=== PATIENT | male | born 1970 | race Native Hawaiian/Other Pacific Islander ===

== ENCOUNTER 2017-06-21 21:01 | Inpatient (IN) | payer BC, OTHER ==
[2017-06-21 22:01] VITALS: BMI 23.6
[2017-06-21] MEDS ORDERED: TDAP Vaccine 0.5 mL Syr IM ONE (22:48)
--- NOTE | 2017-06-21 22:48 | ED PDOC ---
Arrival/HPI <Michael Chisholm - Last Filed: 06/21/17 23:30> - General Historian: Patient, Family <Odalis Ramsey - Last Filed: 06/22/17 02:58> - General Chief Complaint: Syncope Time Seen by Provider: 06/21/17 22:12 - History of Present Illness Narrative History of Present Illness (Text): 06/21/17 22:42 47yr old male presents today s/p syncopal episode. pt states that he was feeling dizzy today and was sent home from work. pt states he took a nap and when he woke up he stood up started walking and passed out. pt states he didnt trip and fall. pt c/o pain to left side of lower lip and face with swelling. pt with hx of anemia but states he never followed up with a doctor. pt denies any complaints at present time. no chest pain or sob. no vomiting/diarrhea. no abdominal pain. pt denies neck or back pain. patients family states this is not the first time he has passed out. They states he has been passing out a lot lately. (Odalis Ramsey) Past Medical History - Provider Review Nursing Documentation Reviewed: Yes - Travel History Have you recently traveled outside [place] w/in the past 3 mons?: No - Tetanus Immunization Tetanus Immunization: Unknown - Cardiac Hx Cardiac Disorders: No - Pulmonary Hx Asthma: Yes - Neurological Hx Neurological Disorder: No - HEENT Hx HEENT Disorder: No - Renal Hx Renal Disorder: No - Endocrine/Metabolic Hx Endocrine Disorders: No - Hematological/Oncological Hx Blood Disorders: No - Integumentary Hx Dermatological Disorder: Yes Hx Eczema: Yes - Musculoskeletal/Rheumatological Hx Falls: No - Gastrointestinal Hx Gastrointestinal Disorders: No - Genitourinary/Gynecological Hx Genitourinary Disorders: No - Psychiatric Hx Psychophysiologic Disorder: No Hx Substance Use: No - Anesthesia Hx Anesthesia: No <Odalis Ramsey - Last Filed: 06/22/17 02:58> Family/Social History - Physician Review Nursing Documentation Reviewed: Yes Family/Social History: Unknown Family HX Smoking Status: Light Smoker < 10 Cigarettes Daily Hx Alcohol Use: Yes (pt admits to drinking 3-4 beers/day) Hx Substance Use: No <Odalis Ramsey - Last Filed: 06/22/17 02:58> Allergies/Home Meds <PhanMichael - Last Filed: 06/21/17 23:30> <Odalis Ramsey - Last Filed: 06/22/17 02:58> Allergies/Adverse Reactions: Allergies No Known Allergies Allergy (Verified 06/21/17 22:00) Home Medications: Home Meds Medication Instructions Recorded Confirmed No Known Home Med 06/21/17 06/21/17 Review of Systems - Review of Systems Constitutional: Fatigue. absent: Fevers ENT: Other (lip swelling/ abrasion lip). absent: Sore Throat, Sinus Congestion Respiratory: absent: SOB, Cough Cardiovascular: Syncope. absent: Chest Pain, Palpitations Gastrointestinal: absent: Abdominal Pain, Nausea, Vomiting Genitourinary Male: absent: Dysuria, Frequency, Hematuria Musculoskeletal: absent: Arthralgias, Back Pain, Neck Pain Skin: Laceration. absent: Rash, Pruritis Neurological: Dizziness. absent: Headache Psychiatric: absent: Anxiety, Depression <Odalis Ramsey - Last Filed: 06/22/17 02:58> Physical Exam Vital Signs Reviewed: Yes Temperature: Afebrile Blood Pressure: Normal Pulse: Regular Respiratory Rate: Normal Appearance: Positive for: Well-Appearing, Non-Toxic, Comfortable Pain Distress: None Mental Status: Positive for: Alert and Oriented X 3 Finger Stick Blood Glucose: 97 - Systems Exam Head: Present: Swelling, Ecchymosis, Other (there are multiple superficial abrasions noted to the left side of the lower lip; + swelling and ecchymosis noted to lip and chin). No: Atraumatic Pupils: Present: PERRL Extroacular Muscles: Present: EOMI Conjunctiva: Present: Normal Ears: Present: Normal, NORMAL TM Mouth: Present: Moist Mucous Membranes, Normal Tounge, Normal Teeth (no dental fracture. no loose dentition). No: Drooling, Trismus, Normal Lips (there is a 1cm jagged superficial laceration noted to the mucosa of left lower lip; does not cross the sintia border. ) Pharnyx: Present: Normal Nose (External): Present: Atraumatic Nose (Internal): Present: Normal Inspection. No: Septal Hematoma Neck: Present: Normal Range of Motion. No: MIDLINE TENDERNESS, Paraspinal Tenderness Respiratory/Chest: Present: Good Air Exchange, Wheezes (slight expiratory wheezing noted bilaterally. ). No: Clear to Auscultation, Respiratory Distress , Accessory Muscle Use Cardiovascular: Present: Regular Rate and Rhythm Abdomen: No: Tenderness, Distention, Rebound, Guarding Back: Present: Normal Inspection. No: Midline Tenderness, Paraspinal Tenderness Upper Extremity: Present: Normal ROM Lower Extremity: Present: Normal ROM Neurological: Present: GCS=15, Speech Normal Skin: Present: Warm, Dry, Normal Color Psychiatric: Present: Alert, Oriented x 3 <Odalis Ramsey - Last Filed: 06/22/17 02:58> Vital Signs Temp Pulse Resp BP Pulse Ox 06/21/17 22:55 98.9 F 110 H 20 136/97 H 100 Medical Decision Making <Michael Chisholm - Last Filed: 06/21/17 23:30> <Odalis Ramsey - Last Filed: 06/22/17 02:58> ED Course and Treatment: 06/21/17 22:51 47yr old male with syncope today with left sided facial injury and lip laceration ekg sinus tachycardia at 108 bpm normal axis normal intervals no ST elevations head ct: FINDINGS: Brain: There is mild diffuse cerebral atrophy present, consistent with this patient's age. No hemorrhage. No significant white matter disease. Ventricles: Unremarkable. No ventriculomegaly. Bones/joints: Unremarkable. No acute fracture. Soft tissues: Unremarkable. Sinuses: There is mucoperiosteal thickening in the maxillary, ethmoid and sphenoid sinuses, consistent with chronic sinusitis. Mastoid air cells: Unremarkable as visualized. No mastoid effusion. IMPRESSION: No evidence of an acute intracranial abnormality. Chronic sinusitis. maxillofacial ct:FINDINGS: Bones/joints: No acute fracture. Soft tissues: Facial soft tissue swelling. Orbits: Unremarkable. Sinuses: There is diffuse mucoperiosteal thickening in the maxillary, ethmoid and sphenoid sinuses, consistent with chronic sinusitis. There is a benign mucous retention cyst in the left maxillary sinus. Dental: Advanced dental caries. Multiple teeth demonstrate periapical lucencies suggesting periodontal disease. Periapical abscess is not excluded. IMPRESSION: No acute fracture or dislocation. Chronic sinusitis. Advanced dental caries and periodontal disease. cbc: wnl cmp: wnl trop; 0.02 cxr: wnl augmentin given po ASA given po pt given NS iv bolus; pt reassessment; pt still slightly tachycardic; feeling better. laceration irrigated with ns using high pressure irrigation; laceration repaired with 3 6.0 vicryl sutures; all results discussed in depth with patient and family. case discussed in depth with dr. hawkins; accepts observational status admission to [facility] for syncope. all aspects of this case were discussed the attending of record. Impression: Syncope Admit observational status to telemetry (Odalis Ramsey) - Lab Interpretations Lab Results: 06/21/17 22:43 06/21/17 22:43 Lab Results 06/22/17 00:55: Urine Color Yellow, Urine Appearance Sl cloudy, Urine pH 6.5, Ur Specific [place] 1.020, Urine Protein 100 H, Urine Glucose (UA) Negative, Urine Ketones 15 H, Urine Blood Negative, Urine Nitrate Negative, Urine Bilirubin Small H, Urine Urobilinogen 4.0 H, Ur Leukocyte Esterase Negative, Urine RBC 0 - 2, Urine WBC 0 - 2, Ur Epithelial Cells 1 - 3, Urine Bacteria Few 06/21/17 22:43: PT 14.2 H, INR 1.24 H, APTT 37.9 H 06/21/17 22:43: WBC 5.5, RBC 5.53, Hgb 10.1 L, Hct 34.4 L, MCV 62.2 L, MCH 18.3 L, MCHC 29.4 L, RDW 19.7 H, Plt Count 141, Gran % 38.5 L, Lymph % (Auto) 39.4 H , Mason % (Auto) 12.5 H, Eos % (Auto) 6.3 H, Baso % (Auto) 3.3 H, Gran # 2.13, Lymph # (Auto) 2.2, Mason # (Auto) 0.7 H, Eos # (Auto) 0.4, Baso # (Auto) 0.18 06/21/17 22:43: Sodium 147, Potassium 3.2 L, Chloride 105, Carbon Dioxide 25, Anion Gap 21 H, BUN 6 L, Creatinine 0.6 L, Est GFR ( Amer) > 60, Est GFR (Non-Af Amer) > 60, Random Glucose 126 H, Calcium 8.3 L, Total Bilirubin 3.1 H, AST 92 H, ALT 38, Alkaline Phosphatase 95, Lactate Dehydrogenase 737 H, Total Creatine Kinase 85, Troponin I 0.02 D, Total Protein 8.5 H, Albumin 4.4, Globulin 4.2, Albumin/Globulin Ratio 1.0 L - RAD Interpretation Radiology Orders: 06/21/17 22:12 CHEST PORTABLE [RAD] Stat 06/21/17 22:40 HEAD W/O CONTRAST [CT] Stat MAXILLOFACIAL W/O CONTRAST [CT] Stat - Medication Orders Current Medication Orders: Discontinued Medications Amoxicillin/Clavulanate Potassium (Augmentin 875 Mg-125 Mg Tab) 1 tab PO STAT STA PRN Reason: Protocol Stop: 06/22/17 01:14 Last Admin: 06/22/17 01:57 Dose: 1 tab Aspirin (Aspirin) 325 mg PO STAT STA Stop: 06/22/17 01:14 Last Admin: 06/22/17 01:46 Dose: 325 mg Sodium Chloride (Sodium Chloride 0.9%) 1,000 mls @ 999 mls/hr IV .Q1H1M STA Stop: 06/22/17 00:16 Last Admin: 06/22/17 00:02 Dose: 999 mls/hr eMAR Start Stop Document 06/22/17 00:02 (Rec: 06/22/17 00:02 [id number]) Intravenous Solution Start Date 06/22/17 Start Time 00:02 Potassium Chloride (K-Dur 20 Meq Er Tab) 40 meq PO STAT STA Stop: 06/22/17 02:28 Tetanus/Reduced Diphtheria/Acell Pertussis (Boostrix Vaccine Inj) 0.5 ml IM .ONCE ONE Stop: 06/21/17 22:49 Last Admin: 06/22/17 00:00 Dose: 0.5 ml Immunization Registry Document 06/22/17 00:00 (Rec: 06/22/17 00:01 [id number]) Immunization Registry Consent Date 06/21/17 Procedure: Wound Repair - Performed by Performed by: Mid-level Provider - Indications Indication(s):: Laceration - Location Shape:: Other (jagged) Dimensions Length cm: 1cm Depth:: Epidermis - Anesthetic Technique Local/Regional Anesthetic:: Lidocaine 1% - Debris Debris:: None - Irrigated Irrigated with ml of normal saline: copious amounts of NS using high pressure irrigation - Complexity Complexity:: Simple (one layer) - Wound repair method Sutures:: # (3), Size (6.0), Type (vicryl), Technique (interrupted) - Complications Complications: none - Patient tolerated procedure Patient Tolerated Procedure:: Well <Odalis Ramsey - Last Filed: 06/22/17 02:58> - PA / ROAD TEST EXAMINER / Resident Statement / has reviewed & agrees with the documentation as recorded. <Michael Chisholm - Last Filed: 06/21/17 23:30> Disposition/Present on Arrival <Michael Chisholm - Last Filed: 06/21/17 23:30> - Present on Arrival Any Indicators Present on Arrival: No History of DVT/PE: No History of Uncontrolled Diabetes: No Urinary Catheter: No History of Decub. Ulcer: No History Surgical Site Infection Following: None - Disposition Have Diagnosis and Disposition been Completed?: Yes Disposition Time: 02:00 Patient Plan: Observation <Odalis Ramsey - Last Filed: 06/22/17 02:58> - Disposition Diagnosis: Syncope, Lip laceration, Head injury, Facial contusion, Chronic sinusitis Disposition: HOSPITALIZED Patient Problems: Current Active Problems Problem Status Onset Chronic sinusitis Acute Facial contusion Acute Head injury Acute Lip laceration Acute Syncope Acute Condition: FAIR Discharge Instructions (ExitCare): Syncope (ED) Referrals: PCP,NO [Primary Care Provider] - Follow up with primary Forms: Lemko (Ecuadorean)
[2017-06-21 22:51] LABS: BASO # 0.18 K/mm3 (0.0-2.0); BASO % 3.3 % (0.0-3.0); EOS # 0.4 (0.0-0.7); EOS % 6.3 % (1.5-5.0); GRAN # 2.13 (1.4-6.5); GRAN % 38.5 % (50.0-68.0); HEMOGLOBIN 10.1 g/dL (14.0-18.0); LYMPH # 2.2 (1.2-3.4); LYMPH % 39.4 % (22.0-35.0); MEAN CELL VOLUME 62.2 fl (80.0-105.0); MEAN CORPUSCULAR HEMOGLOBIN 18.3 pg (25.0-35.0); MEAN CORPUSCULAR HGB CONC 29.4 g/dl (31.0-37.0); MONO # 0.7 (0.1-0.6); MONO % 12.5 % (1.0-6.0); PLATELET COUNT 141 10^3/uL (120.0-450.0); RBC 5.53 10^6/uL (3.5-6.1); RED CELL DISTRIBUTION WIDTH 19.7 % (11.5-14.5); WHITE BLOOD COUNT 5.5 10^3/ul (4.5-11.0)
[2017-06-21 23:00] LABS: ALBUMIN 4.4 g/dL (3.0-4.8); ALT/SGPT 38 U/L (7-56); AST/SGOT 92 U/L (17-59); BLOOD UREA NITROGEN 6 mg/dL (7-21); CALCIUM 8.3 mg/dL (8.4-10.5); GFR AFRICAN-AMERICAN > 60; GFR NON-AFRICAN AMERICAN > 60
[2017-06-21 23:02] LABS: INR 1.24 (0.93-1.08); PARTIAL THROMBOPLASTIN TIME 37.9 Seconds (25.1-36.5); PROTHROMBIN TIME 14.2 SECONDS (9.4-12.5)
[2017-06-21 23:10] LABS: TROPONIN I 0.02 ng/mL
[2017-06-21] MEDS ORDERED: Sodium Chloride 0.9% 1,000 ML IV STA (23:16)
--- NOTE | 2017-06-22 00:18 | CT ---
EXAM: CT Head Without Intravenous Contrast CLINICAL HISTORY: 47 years old, male; Signs and symptoms; Syncope and collapse TECHNIQUE: Axial computed tomography images of the head/brain without intravenous contrast. All CT scans at this facility use one or more dose reduction techniques, viz.: automated exposure control; ma/kV adjustment per patient size (including targeted exams where dose is matched to indication; i.e. head); or iterative reconstruction technique. Coronal and sagittal reformatted images were created and reviewed. COMPARISON: No relevant prior studies available. FINDINGS: Brain: There is mild diffuse cerebral atrophy present, consistent with this patient's age. No hemorrhage. No significant white matter disease. Ventricles: Unremarkable. No ventriculomegaly. Bones/joints: Unremarkable. No acute fracture. Soft tissues: Unremarkable. Sinuses: There is mucoperiosteal thickening in the maxillary, ethmoid and sphenoid sinuses, consistent with chronic sinusitis. Mastoid air cells: Unremarkable as visualized. No mastoid effusion. IMPRESSION: No evidence of an acute intracranial abnormality. Chronic sinusitis.
--- NOTE | 2017-06-22 00:29 | CT ---
EXAM: CT Maxillofacial Without Intravenous Contrast CLINICAL HISTORY: 47 years old, male; Injury or trauma; Fall; Initial encounter; Concussion /head injury; Loss of consciousness not known; Additional info: Syncope, facial injury TECHNIQUE: Axial computed tomography images of the face without intravenous contrast. All CT scans at this facility use one or more dose reduction techniques, viz.: automated exposure control; ma/kV adjustment per patient size (including targeted exams where dose is matched to indication; i.e. head); or iterative reconstruction technique. Coronal and sagittal reformatted images were created and reviewed. COMPARISON: No relevant prior studies available. FINDINGS: Bones/joints: No acute fracture. Soft tissues: Facial soft tissue swelling. Orbits: Unremarkable. Sinuses: There is diffuse mucoperiosteal thickening in the maxillary, ethmoid and sphenoid sinuses, consistent with chronic sinusitis. There is a benign mucous retention cyst in the left maxillary sinus. Dental: Advanced dental caries. Multiple teeth demonstrate periapical lucencies suggesting periodontal disease. Periapical abscess is not excluded. IMPRESSION: No acute fracture or dislocation. Chronic sinusitis. Advanced dental caries and periodontal disease.
[2017-06-22 01:10] LABS: PH,URINE 6.5 (4.7-8.0); URINE BILIRUBIN SMALL (NEGATIVE); URINE BLOOD NEGATIVE (NEGATIVE); URINE GLUCOSE (UA) NEGATIVE (NEGATIVE); URINE LEUKOCYTE ESTERASE NEGATIVE Leu/uL (NEGATIVE); URINE PROTEIN 100 mg/dL (<30 mg/dL)
[2017-06-22] MEDS ORDERED: Amoxicillin-Clav 875-125 mg Tab PO STA (01:13)
[2017-06-22 01:14] LABS: URINE APPEARANCE SL CLOUDY (CLEAR); URINE COLOR YELLOW (YELLOW)
[2017-06-22 01:33] LABS: URINE BACTERIA FEW (NEG); URINE RBC 0 - 2 /hpf (0-2); URINE WBC 0 - 2 /hpf (0-6)
[2017-06-22] MEDS ORDERED: Lidocaine 1% Inj (20ml) ONE (02:04)
[2017-06-22] MEDS ORDERED: Potassium Chloride 20 mEq ER Tab PO STA ×3 (02:27→15:09)
[2017-06-22] MEDS ORDERED: Albuterol HFA 90 mcg/actuation (8 g) IH PRN (03:09)
[2017-06-22] MEDS ORDERED: Levalbuterol 0.63 MG/3 ML Inhal Soln UD IH PRN (03:09)
[2017-06-22] MEDS ORDERED: Multivitamin (MVI) 10 ML, Thiamine 100 MG, Folic Acid 1 MG in Sodium Chloride 0.9% 1,00... IV ONE (03:12)
[2017-06-22 04:54] LABS: BARBITURATES, UR NEGATIVE (NEGATIVE); BENZODIAZEPINES, UR NEGATIVE (NEGATIVE); OPIATES, UR NEGATIVE (NEGATIVE); PHENCYCLIDINE, UR NEGATIVE (NEGATIVE)
--- NOTE | 2017-06-22 05:25 | CP.PCM.HP ---
<Rhys Goyal - Last Filed: 06/22/17 05:22> History of Present Illness - History of Present Illness History of Present Illness: CC: Syncopal episode HPI: 47 year old male with past medical history of asthma, HTN, gastritis, alcohol abuse who presents to ED by EMS for syncopal episode occurring earlier in the day. Patient indicates that he became dizzy at work due to fasting for blood work he was to have drawn. He then went home and laid down for a nap and as he stood up he became lightheaded and had syncopal episode. Patient is unsure of down time during interview. He reports trauma to his face with abrasion of his lower left lip. Patient denies bowel or urinary incontinence, biting of his tongue, confusion after syncopal episode. He reports that this is the first episode for him in quit some time. Private discussion with family indicates patient has had pre-syncope v. syncope 4 times in the past 7 months. 12 point ros benign other than mentioned in hpi. PMH: asthma, HTN, gastritis, anemia PSH: Colonoscopy, endoscopy SOCHX: Tobacco: 0.5 to 1 PPD for 20 plus years ETOH: 3 beers a day ID: Denies FMH: Asthma, eczema, Mother: [place], cardiac arrest ALL: NKDA MEDS: Alubterol inhaler Present on Admission - Present on Admission Any Indicators Present on Admission: No Review of Systems - Review of Systems All systems: reviewed and no additional remarkable complaints except (as mentioned in hpi) Past Patient History - Tetanus Immunizations Tetanus Immunization: Unknown - Past Social History Smoking Status: Light Smoker < 10 Cigarettes Daily Alcohol: > 2 Drinks/Day Drugs: Denies - CARDIAC Hx Cardiac Disorders: No - PULMONARY Hx Respiratory Disorders: Yes Hx Asthma: Yes - NEUROLOGICAL Hx Neurological Disorder: Yes Hx Dizziness: Yes - HEENT Hx HEENT Problems: No - RENAL Hx Chronic Kidney Disease: No - ENDOCRINE/METABOLIC Hx Endocrine Disorders: No - HEMATOLOGICAL/ONCOLOGICAL Hx Blood Disorders: Yes Hx Anemia: Yes - INTEGUMENTARY Hx Dermatological Problems: Yes Hx Eczema: Yes - MUSCULOSKELETAL/RHEUMATOLOGICAL Hx Musculoskeletal Disorders: Yes Hx Falls: Yes - GASTROINTESTINAL Hx Gastrointestinal Disorders: No - GENITOURINARY/GYNECOLOGICAL Hx Genitourinary Disorders: No - PSYCHIATRIC Hx Psychophysiologic Disorder: No - SURGICAL HISTORY Hx Surgeries: No - ANESTHESIA Hx Anesthesia: No Meds Allergies/Adverse Reactions: Allergies Allergy/AdvReac Type Severity Reaction Status Date / Time No Known Allergies Allergy Verified 06/21/17 22:00 Physical Exam - Constitutional Appears: Non-toxic - Head Exam Head Exam: NORMAL INSPECTION, NORMOCEPHALIC Additional comments: left lower lip with laceration repaired by suture, intact - Eye Exam Eye Exam: EOMI, PERRL - ENT Exam ENT Exam: Mucous Membranes Dry - Respiratory Exam Respiratory Exam: Wheezes (minimal at bases b/l), NORMAL BREATHING PATTERN. absent: Rales, Rhonchi, Stridor - Cardiovascular Exam Cardiovascular Exam: Tachycardia, REGULAR RHYTHM, +S1, +S2 - GI/Abdominal Exam GI & Abdominal Exam: Normal Bowel Sounds, Soft. absent: Firm, Guarding, Tenderness - Extremities Exam Extremities exam: Positive for: normal capillary refill, pedal pulses present. Negative for: calf tenderness, tenderness - Back Exam Back exam: NORMAL INSPECTION. absent: paraspinal tenderness, vertebral tenderness - Neurological Exam Neurological exam: Alert, CN II-XII Intact, Normal Gait, Oriented x3 - Psychiatric Exam Psychiatric exam: Normal Affect, Normal Mood - Skin Skin Exam: Dry, Warm Results - Vital Signs Recent Vital Signs: Last Vital Signs Temp 97.8 F 06/22/17 03:36 Pulse 112 H 06/22/17 02:59 Resp 20 06/22/17 04:47 BP 164/84 H 06/22/17 02:59 Pulse Ox 99 06/22/17 02:59 - Labs Result Diagrams: 06/21/17 22:43 06/21/17 22:43 Labs: Laboratory Results - last 24 hr 06/22/17 04:00 Urine Opiates Screen Negative Urine Methadone Screen Negative Ur Barbiturates Screen Negative Ur Phencyclidine Scrn Negative Ur Amphetamines Screen Negative U Benzodiazepines Scrn Negative U Oth Cocaine Metabols Negative U Cannabinoids Screen Negative Assessment & Plan - Assessment and Plan (Free Text) Assessment: 47 year old male with past medical history of asthma, HTN, gastritis, alcohol abuse who presents to ED by EMS for syncopal episode. Head CT negative for acute intracranial abnormalities Patient to be admitted to observation neurology evaluation for syncopal episode. Plan: Syncopal episode - Etiology: Cardiogenic v. neurogenic - Head CT: negative for acute intracranial abnormality - Neurology consult - EEG - echocardiogram - Carotid US - Electrolytes - orthostatic vital signs - neuro checks Q4H - Fall, seizure precautions Facial trauma - Laceration to lower left lip as a result of syncopal episode - Head CT: no evidence of acute intracranial abn, chronic sinusitus - Maxillofacial CT: Chronic sinusitis, no acute fracture, or dislocation, advaced dental caries and periodontal disease Alcohol abuse - records indicate patient with 6 pack of beer daily, reports 3 beers a day today - CIWA protocol - Librium prn symptoms etoh withdrawal Asthma - Stable - PRN xopenex breathing tx GI/DVT ppx: Heparin Protonix Case and plan discussed with attending - Date & Time Date: 06/22/17 Time: 05:39 <Prudencio Mckoy Q - Last Filed: 06/22/17 06:48> Results - Vital Signs Recent Vital Signs: Last Vital Signs Temp 98.1 F 06/22/17 06:00 Pulse 102 H 06/22/17 06:00 Resp 18 06/22/17 06:00 BP 144/91 H 06/22/17 06:00 Pulse Ox 98 06/22/17 06:00 - Labs Result Diagrams: 06/21/17 22:43 06/21/17 22:43 Labs: Laboratory Results - last 24 hr 06/22/17 04:00 Urine Opiates Screen Negative Urine Methadone Screen Negative Ur Barbiturates Screen Negative Ur Phencyclidine Scrn Negative Ur Amphetamines Screen Negative U Benzodiazepines Scrn Negative U Oth Cocaine Metabols Negative U Cannabinoids Screen Negative Attending/Attestation - Attestation I have personally seen and examined this patient.: Yes I have fully participated in the care of the patient.: Yes I have reviewed all pertinent clinical information: Yes
[2017-06-22 06:53] LABS: ALB/GLOB RATIO 0.9 (1.1-1.8); ALBUMIN 3.4 g/dL (3.0-4.8); ALT/SGPT 32 U/L (7-56); AST/SGOT 64 U/L (17-59); BLOOD UREA NITROGEN 6 mg/dL (7-21); CALCIUM 7.7 mg/dL (8.4-10.5); GFR AFRICAN-AMERICAN > 60; GFR NON-AFRICAN AMERICAN > 60
[2017-06-22 07:00] LABS: BASO # 0.08 K/mm3 (0.0-2.0); BASO % 1.7 % (0.0-3.0); EOS # 0.2 (0.0-0.7); EOS % 4.2 % (1.5-5.0); GRAN # 3.08 (1.4-6.5); GRAN % 65.3 % (50.0-68.0); LYMPH # 0.9 (1.2-3.4); LYMPH % 19.1 % (22.0-35.0); MEAN CELL VOLUME 62.3 fl (80.0-105.0); MEAN CORPUSCULAR HEMOGLOBIN 17.8 pg (25.0-35.0); MEAN CORPUSCULAR HGB CONC 28.5 g/dl (31.0-37.0); MONO # 0.5 (0.1-0.6); MONO % 9.7 % (1.0-6.0); PLATELET COUNT 93 10^3/uL (120.0-450.0); RBC 4.56 10^6/uL (3.5-6.1); RED CELL DISTRIBUTION WIDTH 19.7 % (11.5-14.5); WHITE BLOOD COUNT 4.7 10^3/ul (4.5-11.0)
[2017-06-22 07:29] LABS: HEMOGLOBIN 8.1 g/dL (14.0-18.0)
[2017-06-22] MEDS ORDERED: Albuterol-Ipratrop 3 mg / 0.5 (3 ml) UD IH STA (07:56)
--- NOTE | 2017-06-22 08:10 | CP.PCM.CON ---
History of Present Illness - History of Present Illness History of Present Illness: Neuro Consult note for Dr. Griffith Reason for consult: syncope 47yo male PMHx HTN, asthma, gastritis, alcohol abuse, and anemia BIBA after syncopal episode on 06/21. Patient reports he was dizzy and went from work earlier that day. At home he lay down for a nap and when he stood up he became lightheaded and fell on his face. He reports he had a similar fall 3 years ago when he was sitting down in a chair and had a coughing fit which caused him to syncopize. Patient was uncertain as to how long he was down for but recalls that his face was very painful and that he was bleeding. He denied any bowel/ bladder incontinence, biting of the tongue, frothing at the mouth, confusion after syncopal episode, headache, blurry vision, ringing of the ears, aura like sensations ie smell/feelings of hellen vu. As per family patient has had episodes of pre-syncope vs syncope 4 times in the past 7 months. On complete ROS this AM he admitted to nausea and LLE pain and left jaw pain but denied any fever, chills, chest pain, palpitations, cough, abd pain, bowel/bladder complaints, swelling in his legs b/l. PMHx: asthma, HTN, gastritis, anemia PSurgHx: Colonoscopy, endoscopy SocHx: smokes 1/2 to 1ppd for the past 20 years, Drinks 3 beers/day for years and denies any drug use. 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 as his sister FamHx: Asthma, eczema, Mother: MA, cardiac arrest 70yo; father from gastric ca 46yo ALL: NKDA Meds: pls see chart Review of Systems - Review of Systems All systems: reviewed and no additional remarkable complaints except Review of Systems: as per HPI Past Patient History - Tetanus Immunizations Tetanus Immunization: Unknown - Past Social History Smoking Status: Light Smoker < 10 Cigarettes Daily Alcohol: > 2 Drinks/Day Drugs: Denies - CARDIAC Hx Cardiac Disorders: No - PULMONARY Hx Respiratory Disorders: Yes Hx Asthma: Yes - NEUROLOGICAL Hx Neurological Disorder: Yes Hx Dizziness: Yes - HEENT Hx HEENT Problems: No - RENAL Hx Chronic Kidney Disease: No - ENDOCRINE/METABOLIC Hx Endocrine Disorders: No - HEMATOLOGICAL/ONCOLOGICAL Hx Blood Disorders: Yes Hx Anemia: Yes - INTEGUMENTARY Hx Dermatological Problems: Yes Hx Eczema: Yes - MUSCULOSKELETAL/RHEUMATOLOGICAL Hx Musculoskeletal Disorders: Yes Hx Falls: Yes - GASTROINTESTINAL Hx Gastrointestinal Disorders: No - GENITOURINARY/GYNECOLOGICAL Hx Genitourinary Disorders: No - PSYCHIATRIC Hx Psychophysiologic Disorder: No - SURGICAL HISTORY Hx Surgeries: No - ANESTHESIA Hx Anesthesia: No Meds Allergies/Adverse Reactions: Allergies Allergy/AdvReac Type Severity Reaction Status Date / Time No Known Allergies Allergy Verified 06/21/17 22:00 - Medications Medications: Current Medications Chlordiazepoxide (Librium) 25 mg PO Q8 PRN; Protocol PRN Reason: Symptoms of alcohol withdrawl Famotidine (Pepcid) 20 mg PO BID LETI Multivitamins/Vitamin C 10 ml/Thiamine HCl 100 mg/ Folic Acid 1 mg/ Sodium Chloride 1,011.2 mls @ 150 mls/hr IV .[id number] ONE Stop: 06/22/17 09:56 Last Admin: 06/22/17 03:30 Dose: 150 mls/hr Levalbuterol HCl (Xopenex) 0.63 mg IH [id number] PRN PRN Reason: Shortness of Breath Physical Exam - Head Exam Head Exam: ATRAUMATIC, NORMAL INSPECTION, NORMOCEPHALIC - Eye Exam Eye Exam: EOMI, Normal appearance, PERRL. absent: Conjunctival injection, Scleral icterus Pupil Exam: NORMAL ACCOMODATION - ENT Exam ENT Exam: Mucous Membranes Moist Additional comments: L facial swelling and tenderness to palpation with area of ecchymosis around L jaw left lower lip with laceration repaired by suture, intact - Neck Exam Neck exam: Positive for: Full Rom - Respiratory Exam Respiratory Exam: NORMAL BREATHING PATTERN. absent: Accessory Muscle Use, Respiratory Distress - Cardiovascular Exam Cardiovascular Exam: +S1, +S2 - GI/Abdominal Exam GI & Abdominal Exam: Soft. absent: Tenderness - Rectal Exam Rectal Exam: Deferred - Extremities Exam Extremities exam: Positive for: normal capillary refill, normal inspection, pedal pulses present. Negative for: pedal edema - Neurological Exam Neurological exam: Alert, CN II-XII Intact, Oriented x3 Additional comments: no pronator drift sensation and strength intact in all 4 extremities tremulous - Psychiatric Exam Psychiatric exam: Normal Affect, Normal Mood - Skin Skin Exam: Dry, Intact Additional comments: ecchymosis around left jaw Results - Vital Signs Recent Vital Signs: Last Vital Signs Temp 98.1 F 06/22/17 06:00 Pulse 102 H 06/22/17 06:00 Resp 18 06/22/17 06:00 BP 144/91 H 06/22/17 06:00 Pulse Ox 98 06/22/17 06:00 - Labs Result Diagrams: 06/22/17 05:30 06/22/17 05:30 Labs: Laboratory Results - last 24 hr 06/22/17 06/22/17 06/22/17 04:00 05:30 05:30 WBC 4.7 RBC 4.56 Hgb 8.1 L D Hct 28.4 L MCV 62.3 L MCH 17.8 L MCHC 28.5 L RDW 19.7 H Plt Count 93 L Gran % 65.3 Lymph % (Auto) 19.1 L Emery % (Auto) 9.7 H Eos % (Auto) 4.2 Baso % (Auto) 1.7 Gran # 3.08 Lymph # (Auto) 0.9 L Emery # (Auto) 0.5 Eos # (Auto) 0.2 Baso # (Auto) 0.08 Sodium 145 Potassium 3.1 L Chloride 109 H Carbon Dioxide 23 Anion Gap 17 BUN 6 L Creatinine 0.6 L Est GFR ( Amer) > 60 Est GFR (Non-Af Amer) > 60 Random Glucose 107 Calcium 7.7 L Total Bilirubin 2.4 H AST 64 H D ALT 32 Alkaline Phosphatase 82 Total Protein 7.0 Albumin 3.4 Globulin 3.6 Albumin/Globulin Ratio 0.9 L Urine Opiates Screen Negative Urine Methadone Screen Negative Ur Barbiturates Screen Negative Ur Phencyclidine Scrn Negative Ur Amphetamines Screen Negative U Benzodiazepines Scrn Negative U Oth Cocaine Metabols Negative U Cannabinoids Screen Negative Assessment & Plan - Assessment and Plan (Free Text) Assessment: 47yo male PMHx HTN, asthma, gastritis, alcohol abuse, and anemia BIBA after syncopal episode on 06/21. Neuro consulted for syncope Plan: -CT head: negative -f/u orthostatics -f/u Echo -f/u EEG -f/u carotid and vertebral u/s -f/u CTA head/neck -f/u vitamin b12 and folate -Neuro checks q4 -Fall precautions -Seizure precautions -CIWA protocol Neuro will continue to follow Discussed with Dr. Nacho Jeffery PGY2
--- NOTE | 2017-06-22 09:18 | RAD ---
HISTORY: syncope COMPARISON: 10/22/2015 FINDINGS: LUNGS: No active pulmonary disease. PLEURA: No significant pleural effusion identified, no pneumothorax apparent. CARDIOVASCULAR: Normal. OSSEOUS STRUCTURES: No significant abnormalities. VISUALIZED UPPER ABDOMEN: Normal. OTHER FINDINGS: None. IMPRESSION: No active disease.
[2017-06-22] MEDS: Levalbuterol 0.63 MG/3 ML Inhal Soln UD IH PRN (11:10)
--- NOTE | 2017-06-22 14:19 | CT ---
PROCEDURE: CT Angiography of the neck with contrast HISTORY: syncope COMPARISON: None available. TECHNIQUE: Contiguous axial images of the neck were obtained from the level of the skull-base to the superior mediastinum in the arteriographic phase of enhancement. Coronal and sagittal reformats or also generated. IV contrast dose: 150 cc of Omni 350 Radiation Dose - DLP: 534 mGy-cm This CT exam was performed using one or more of the following dose reduction techniques: Automated exposure control, adjustment of the mA and/or kV according to patient size, and/or use of iterative reconstruction technique. FINDINGS: RIGHT CAROTID ARTERIES: Common Carotid Artery: Normal. Carotid Bifurcation: Normal. Internal Carotid Artery:Normal. External Carotid Artery (proximal branches): Normal. LEFT CAROTID ARTERIES: Common Carotid Artery: Normal. Carotid Bifurcation: Normal. Internal Carotid Artery:Normal. External Carotid Artery (proximal branches): Normal. VERTEBRAL ARTERIES: Right Vertebral Artery: Normal. Left Vertebral Artery: Normal. OTHER FINDINGS: None. IMPRESSION: Normal CT Angiography of the neck. CT Angiography of the Brain. HISTORY: syncope COMPARISON: None available. TECHNIQUE: CT angiography of the intracranial arteries was performed. Coronal and sagittal maximum intensity projection reformated images were generated. This CT exam was performed using one or more of the following dose reduction techniques: Automated exposure control, adjustment of the mA and/or kV according to patient size, and/or use of iterative reconstruction technique. FINDINGS: INTERNAL CEREBRAL ARTERIES: Unremarkable. The skull base, petrous, cavernous and supraclinoid segments are bilaterally widely patent. ANTERIOR CEREBRAL ARTERIES: Unremarkable. A1 and A2 segments are widely patent. Smaller distal branches unremarkable, as visualized. MIDDLE CEREBRAL ARTERIES: Unremarkable. M1 and M2 segments are widely patent. Perisylvian branches grossly symmetric. POSTERIOR CIRCULATION: Basilar Artery: Unremarkable. Distal Vertebral Arteries: Unremarkable. Posterior Cerebral Arteries: Unremarkable. Posterior Inferior Cerebellar Arteries: Unremarkable. ANEURYSM/ VASCULAR MALFORMATIONS: None. OTHER FINDINGS: None. IMPRESSION: Unremarkable CT Angiography of the Brain.
--- NOTE | 2017-06-22 16:52 | CARD ---
APPROVED REPORT EKG Measurement Heart [id number] <Conclusion> Sinus tachycardia Cannot rule out Anterior infarct, age undetermined Abnormal ECG
--- NOTE | 2017-06-22 17:44 | US ---
PROCEDURE: Bilateral carotid artery duplex ultrasound HISTORY: Carotid stenosis PHYSICIAN(S): Horacio Vega MD. TECHNIQUE: Duplex sonography and color-flow Doppler were used to evaluate the carotid bifurcations and limited segments of the vertebral arteries bilaterally. FINDINGS: There is mild smooth hypoechoic plaque noted at the carotid bifurcations bilaterally. The peak systolic velocity in the proximal right internal carotid artery is 81 cm/sec. This corresponds to a 0-19 percent proximal right ICA stenosis. Normal systolic velocities are noted in the proximal right external carotid artery. There is antegrade flow in the right vertebral artery. The peak systolic velocity in the proximal left internal carotid artery is 92 cm/sec. This corresponds to a 0-19 percent proximal left ICA stenosis. Normal systolic velocities are noted in the proximal left external carotid artery. There is antegrade flow in the left vertebral artery. IMPRESSION: 1. Bilateral 0-19 percent proximal ICA stenoses. 2. Antegrade flow in both vertebral arteries.
[2017-06-22 19:36] LABS: FOLATE 5.7 ng/mL
[2017-06-23 08:09] LABS: BASO # 0.05 K/mm3 (0.0-2.0); BASO % 1.1 % (0.0-3.0); EOS # 0.2 (0.0-0.7); EOS % 4.3 % (1.5-5.0); GRAN # 2.89 (1.4-6.5); GRAN % 62.5 % (50.0-68.0); HEMOGLOBIN 8.3 g/dL (14.0-18.0); LYMPH # 0.8 (1.2-3.4); LYMPH % 18.1 % (22.0-35.0); MEAN CELL VOLUME 64.5 fl (80.0-105.0); MEAN CORPUSCULAR HEMOGLOBIN 17.7 pg (25.0-35.0); MEAN CORPUSCULAR HGB CONC 27.4 g/dl (31.0-37.0); MONO # 0.7 (0.1-0.6); PLATELET COUNT 81 10^3/uL (120.0-450.0); RED CELL DISTRIBUTION WIDTH 19.8 % (11.5-14.5); WHITE BLOOD COUNT 4.6 10^3/ul (4.5-11.0)
[2017-06-23 08:19] LABS: ALB/GLOB RATIO 0.9 (1.1-1.8); ALBUMIN 3.3 g/dL (3.0-4.8); ALT/SGPT 33 U/L (7-56); AST/SGOT 66 U/L (17-59); BLOOD UREA NITROGEN 3 mg/dL (7-21); CALCIUM 8.4 mg/dL (8.4-10.5); GFR AFRICAN-AMERICAN > 60; GFR NON-AFRICAN AMERICAN > 60
[2017-06-23] MEDS ORDERED: Potassium Chloride 20 mEq ER Tab PO STA (08:23)
[2017-06-23] MEDS: Levalbuterol 0.63 MG/3 ML Inhal Soln UD IH PRN (09:23)
[2017-06-23 11:34] VITALS: BP 137/94; RESP 18; TEMP 98
[2017-06-23 13:04] VITALS: O2SAT 96
--- NOTE | 2017-06-23 13:06 | CP.PCM.PN ---
Addendum entered and electronically signed by Marvin Kay DO 06/23/17 14:15 : Heparin held due to platelet count of 81 Original Note: <Marvin Kya - Last Filed: 06/23/17 13:03> Subjective - Date & Time of Evaluation Date of Evaluation: 06/23/17 Time of Evaluation: 08:00 - Subjective Subjective: PGY1 Medicine Note for Dr. Narvaez Patient seen and examined this morning at bedside. No acute events overnight. Patient is much more awake and mentally with it this morning. He is currently not shaking and says he feels much better. He is resting comfortably and states he understands that all of this is due to his drinking. He states he would like to go home and go to work as soon as possible, but will not drink any alcohol. He is tolerating his diet without nausea or vomit. Denies fevers, chills, diarrhea, constipation, chest pain, shortness of breath, palpitations, abdominal pain, headaches, vision changes, numbness or tingling. Objective - Vital Signs/Intake and Output Vital Signs (last 24 hours): Temp Pulse Resp BP Pulse Ox 98 F 90 18 137/94 H 97 06/23/17 11:33 06/23/17 11:33 06/23/17 11:33 06/23/17 11:33 06/22/17 09:00 Intake and Output: 06/23/17 06/23/17 06:59 18:59 Intake Total 240 Balance 240 - Medications Medications: Current Medications Chlordiazepoxide (Librium) 25 mg PO Q8 LETI PRN Reason: Protocol Clonidine HCl (Catapres) 0.1 mg PO Q4H PRN PRN Reason: Symptoms of alcohol withdrawl Last Admin: 06/23/17 09:07 Dose: 0.1 mg Famotidine (Pepcid) 20 mg PO BID LETI Last Admin: 06/23/17 09:07 Dose: 20 mg Levalbuterol HCl (Xopenex) 0.63 mg IH [id number] PRN PRN Reason: Shortness of Breath Last Admin: 06/23/17 09:23 Dose: 0.63 mg Lorazepam (Ativan) 1 mg IVP Q4H PRN PRN Reason: Symptoms of alcohol withdrawl Lorazepam (Ativan) 2 mg IVP Q8 LETI PRN Reason: Protocol Last Admin: 06/23/17 06:39 Dose: Not Given - Labs Labs: 06/23/17 07:30 06/23/17 07:30 PT 14.2 SECONDS (9.4-12.5) H 06/21/17 22:43 INR 1.24 (0.93-1.08) H 06/21/17 22:43 APTT 37.9 Seconds (25.1-36.5) H 06/21/17 22:43 - Constitutional Appears: Non-toxic, No Acute Distress - Head Exam Head Exam: absent: ATRAUMATIC (left lower lip with laceration repaired by suture , intact, surrounded by area of ecchymosis) - Eye Exam Eye Exam: EOMI, Normal appearance - ENT Exam ENT Exam: Mucous Membranes Moist - Neck Exam Neck Exam: absent: Lymphadenopathy, Tenderness - Respiratory Exam Respiratory Exam: Clear to Ausculation Bilateral, Wheezes (throughout b/l; re- assessed after breathing treatment resulted in resolution of symptom), NORMAL BREATHING PATTERN. absent: Accessory Muscle Use, Rales, Rhonchi, Respiratory Distress - Cardiovascular Exam Cardiovascular Exam: REGULAR RHYTHM, +S1 - GI/Abdominal Exam GI & Abdominal Exam: Soft, Normal Bowel Sounds. absent: Distended, Firm, Guarding, Rigid, Tenderness - Extremities Exam Extremities Exam: absent: Calf Tenderness, Tenderness - Back Exam Back Exam: absent: CVA tenderness (L), CVA tenderness (R) - Neurological Exam Neurological Exam: Alert, Awake, CN II-XII Intact, Oriented x3 Additional comments: No tremors throughout, especially in upper extremities b/l noted today. - Psychiatric Exam Psychiatric exam: Normal Affect, Normal Mood - Skin Skin Exam: Dry, Warm Assessment and Plan - Assessment and Plan (Free Text) Assessment: 47 year old male with past medical history of asthma, HTN, gastritis, alcohol abuse who presents to ED by EMS for syncopal episode. Head CT negative for acute intracranial abnormalities Patient to be admitted to observation neurology evaluation for syncopal episode. Plan: Syncopal episode - Etiology: Cardiogenic v. neurogenic - Head CT: negative for acute intracranial abnormality - Neurology consult - EEG - echocardiogram - awaiting official report - Carotid US - unremarkable - orthostatic vital signs - negative - neuro checks Q4H - Fall, seizure precautions Facial trauma - Laceration to lower left lip as a result of syncopal episode - Head CT: no evidence of acute intracranial abn, chronic sinusitus - Maxillofacial CT: Chronic sinusitis, no acute fracture, or dislocation, advaced dental caries and periodontal disease Alcohol abuse - Alcohol upon arrival, 317 - records indicate patient with 6 pack of beer daily, reports 3 beers a day this visit - [facility] protocol - Librium 25mg PO q8h - Clonidine 0.1mg PO q4h prn - Ativan 2mg IVP q8h - Ativan 1mg IVP q4h prn - SW discussed AA and rehab options with patient. Asthma - Stable - Levalbuterol 0.63mg IH q4h prn Hypokalemia K+3.2 Repleted - 40 meq oral and 40 meq IV - Patient unable to tolerate burning of IV, will give second dose of 40meq orally in afternoon. continue to monitor Prophylactic Care Heparin Pepcid 20mg PO BID DISPO: Patient requesting to go home so he can go to work tomorrow. He is a truck packer. Ptaient Case discussed with Dr. Solange Wong Rahul PGY1 <Joanne Narvaez - Last Filed: 06/23/17 15:08> Objective - Vital Signs/Intake and Output Vital Signs (last 24 hours): Temp Pulse Resp BP Pulse Ox 98 F 81 18 137/94 H 96 06/23/17 11:33 06/23/17 14:00 06/23/17 11:33 06/23/17 11:33 06/23/17 09:00 Intake and Output: 06/23/17 06/23/17 06:59 18:59 Intake Total 240 180 Output Total 300 Balance 240 -120 - Medications Medications: Current Medications Chlordiazepoxide (Librium) 25 mg PO Q8 LETI PRN Reason: Protocol Last Admin: 06/23/17 14:03 Dose: 25 mg Clonidine HCl (Catapres) 0.1 mg PO Q4H PRN PRN Reason: Symptoms of alcohol withdrawl Last Admin: 06/23/17 09:07 Dose: 0.1 mg Famotidine (Pepcid) 20 mg PO BID LETI Last Admin: 06/23/17 09:07 Dose: 20 mg Levalbuterol HCl (Xopenex) 0.63 mg IH [id number] PRN PRN Reason: Shortness of Breath Last Admin: 06/23/17 09:23 Dose: 0.63 mg Lorazepam (Ativan) 1 mg IVP Q4H PRN PRN Reason: Symptoms of alcohol withdrawl Lorazepam (Ativan) 2 mg IVP Q8 LETI PRN Reason: Protocol Last Admin: 06/23/17 14:01 Dose: Not Given - Labs Labs: 06/23/17 07:30 06/23/17 07:30 PT 14.2 SECONDS (9.4-12.5) H 06/21/17 22:43 INR 1.24 (0.93-1.08) H 06/21/17 22:43 APTT 37.9 Seconds (25.1-36.5) H 06/21/17 22:43 Attending/Attestation - Attestation I have personally seen and examined this patient.: Yes I have fully participated in the care of the patient.: Yes I have reviewed all pertinent clinical information, including history, physical exam and plan: Yes Notes (Text): 06/23/17 15:01 Attending note; Patient seen and examined with resident. Patient is a 47-year-old male with a history of alcohol abuse is admitted with acute alcohol abuse and fall. CT head is negative. CTA is negative. Neurology evaluation evaluated. Mild alcohol withdrawal; continue IV Ativan. Elevated LFT; mostly secondary to alcohol abuse. Improving slowly. Taper Ativan. Thrombocytopenia; secondary to alcohol-induced bone marrow suppression. History of anemia; patient had workup with egd/colonoscopy 2 years ago. Needs outpatient GI follow up. Complete alcohol cessation is strongly advised. 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 Physical therapy evaluation requested. upon discharge the patient will follow-up with [facility] clinic.
[2017-06-23 14:29] VITALS: PULSE 81
--- NOTE | 2017-06-23 14:49 | CARD ---
APPROVED REPORT EXAM: Two-dimensional and M-mode echocardiogram with Doppler and color Doppler. INDICATION SYNCOPAL EPISODES 2D DIMENSIONS Left Atrium (2D)5.5 (1.6-4.0cm)IVSd1.5 (0.7-1.1cm) LVDd4.9 (3.9-5.9cm)PWd1.5 (0.7-1.1cm) LVDs3.6 (2.5-4.0cm)FS (%) 25.8 % LVEF (%)50.7 (>50%) M-Mode DIMENSIONS Aortic Root4.10 (2.2-3.7cm)Aortic Cusp Exc.2.10 (1.5-2.0cm) Aortic Valve AoV Peak Wiazisam078.0cm/Bebeto Peak GR.6mmHg Mitral Valve MV E Shqffuec40.3cm/sMV A Onwbyxty08.7cm/sE/A ratio0.8 TDI Lateral E' Peak V6.92cm/sMedial E' Peak V6.24cm/sE/Lateral E'10.9 E/Medial E'12.1 Pulmonary Valve PV Peak Alentzui43.6cm/sPV Peak Grad.3mmHg Tricuspid Valve TR Peak [id number]/sRAP [id number] Peak Gr.13mmHg [id number] LEFT VENTRICLE The left ventricle is normal size. There is mild to moderate concentric left ventricular hypertrophy. Left ventricle systolic function is borderline. There is normal LV segmental wall motion. Transmitral Doppler flow pattern is Grade I-abnormal relaxation pattern. No left ventricle thrombus noted on this study. RIGHT VENTRICLE The right ventricle is normal size. There is normal right ventricular wall thickness. The right ventricular systolic function is normal. ATRIA The left atrium is moderately dilated. The right atrium is mildly dilated. AORTIC VALVE The aortic valve is normal in structure. No aortic regurgitation is present. There is no aortic valvular stenosis. MITRAL VALVE The mitral valve is mildly thickened. Mitral regurgitation is mild. TRICUSPID VALVE The tricuspid valve is normal in structure. There is no tricuspid valve regurgitation noted. GREAT VESSELS The aortic root is normal in size. PERICARDIAL EFFUSION There is no pericardial effusion. <Conclusion> The left ventricle is normal size. There is mild to moderate concentric left ventricular hypertrophy. Left ventricle systolic function is borderline. There is normal LV segmental wall motion. Transmitral Doppler flow pattern is Grade I-abnormal relaxation pattern. Mitral regurgitation is mild.
--- NOTE | 2017-06-23 20:23 | CP.PCM.DIS ---
<Marvin Kay - Last Filed: 06/24/17 13:24> Provider - Provider Date of Admission: 06/22/17 14:56 Attending physician: John Woody MD Primary care physician: NO PRIMARY CARE PROVIDER Consults: Neuro - Griffith Time Spent in preparation of Discharge (in minutes): 35 Diagnosis - Discharge Diagnosis (1) ETOH abuse Status: Acute (2) Facial contusion Status: Acute (3) Lip laceration Status: Acute (4) Anemia Status: Acute Hospital Course - Lab Results Lab Results: Most Recent Lab Values WBC 4.6 10^3/ul (4.5-11.0) 06/23/17 07:30 RBC 4.70 10^6/uL (3.5-6.1) 06/23/17 07:30 Hgb 8.3 g/dL (14.0-18.0) L 06/23/17 07:30 Hct 30.3 % (42.0-52.0) L 06/23/17 07:30 MCV 64.5 fl (80.0-105.0) L 06/23/17 07:30 MCH 17.7 pg (25.0-35.0) L 06/23/17 07:30 MCHC 27.4 g/dl (31.0-37.0) L 06/23/17 07:30 RDW 19.8 % (11.5-14.5) H 06/23/17 07:30 Plt Count 81 10^3/uL (120.0-450.0) L 06/23/17 07:30 Gran % 62.5 % (50.0-68.0) 06/23/17 07:30 Lymph % (Auto) 18.1 % (22.0-35.0) L 06/23/17 07:30 [place] % (Auto) 14.0 % (1.0-6.0) H 06/23/17 07:30 Eos % (Auto) 4.3 % (1.5-5.0) 06/23/17 07:30 Baso % (Auto) 1.1 % (0.0-3.0) 06/23/17 07:30 Gran # 2.89 (1.4-6.5) 06/23/17 07:30 Lymph # (Auto) 0.8 (1.2-3.4) L 06/23/17 07:30 [place] # (Auto) 0.7 (0.1-0.6) H 06/23/17 07:30 Eos # (Auto) 0.2 (0.0-0.7) 06/23/17 07:30 Baso # (Auto) 0.05 K/mm3 (0.0-2.0) 06/23/17 07:30 PT 14.2 SECONDS (9.4-12.5) H 06/21/17 22:43 INR 1.24 (0.93-1.08) H 06/21/17 22:43 APTT 37.9 Seconds (25.1-36.5) H 06/21/17 22:43 Sodium 142 mmol/L (132-148) 06/23/17 07:30 Potassium 3.2 mmol/L (3.6-5.0) L 06/23/17 07:30 Chloride 108 mmol/L (98-107) H 06/23/17 07:30 Carbon Dioxide 25 mmol/L (21-33) 06/23/17 07:30 Anion Gap 12 (10-20) 06/23/17 07:30 BUN 3 mg/dL (7-21) L 06/23/17 07:30 Creatinine 0.6 mg/dl (0.8-1.5) L 06/23/17 07:30 Est GFR ( Amer) > 60 06/23/17 07:30 Est GFR (Non-Af Amer) > 60 06/23/17 07:30 POC Glucose (mg/dL) 97 mg/dL (65-110) 06/21/17 22:00 Random Glucose 121 mg/dL (70-110) H 06/23/17 07:30 Calcium 8.4 mg/dL (8.4-10.5) 06/23/17 07:30 Phosphorus 3.1 mg/dL (2.5-4.5) 06/22/17 12:00 Magnesium 1.7 mg/dL (1.7-2.2) 06/22/17 12:00 Total Bilirubin 1.9 mg/dL (0.2-1.3) H 06/23/17 07:30 AST 66 U/L (17-59) H 06/23/17 07:30 ALT 33 U/L (7-56) 06/23/17 07:30 Alkaline Phosphatase 79 U/L (38-126) 06/23/17 07:30 Lactate Dehydrogenase 737 U/L (333-699) H 06/21/17 22:43 Total Creatine Kinase 85 U/L (35-230) 06/21/17 22:43 Troponin I 0.02 ng/mL D 06/21/17 22:43 Total Protein 6.9 g/dL (5.8-8.3) 06/23/17 07:30 Albumin 3.3 g/dL (3.0-4.8) 06/23/17 07:30 Globulin 3.6 gm/dL 06/23/17 07:30 Albumin/Globulin Ratio 0.9 (1.1-1.8) L 06/23/17 07:30 Vitamin B12 289 pg/mL (239-931) 06/22/17 12:00 Folate 5.7 ng/mL 06/22/17 12:00 Urine Color Yellow (YELLOW) 06/22/17 00:55 Urine Appearance Sl cloudy (CLEAR) 06/22/17 00:55 Urine pH 6.5 (4.7-8.0) 06/22/17 00:55 Ur Specific [place] 1.020 (1.005-1.035) 06/22/17 00:55 Urine Protein 100 mg/dL (<30 mg/dL) H 06/22/17 00:55 Urine Glucose (UA) Negative mg/dL (NEGATIVE) 06/22/17 00:55 Urine Ketones 15 mg/dL (NEGATIVE) H 06/22/17 00:55 Urine Blood Negative (NEGATIVE) 06/22/17 00:55 Urine Nitrate Negative (NEGATIVE) 06/22/17 00:55 Urine Bilirubin Small (NEGATIVE) H 06/22/17 00:55 Urine Urobilinogen 4.0 E.U./dL (<1 E.U./dL) H 06/22/17 00:55 Ur Leukocyte Esterase Negative Dell/uL (NEGATIVE) 06/22/17 00:55 Urine RBC 0 - 2 /hpf (0-2) 18 00:55 Urine WBC 0 - 2 /hpf (0-6) 06/22/17 00:55 Ur Epithelial Cells 1 - 3 /hpf (0-5) 06/22/17 00:55 Urine Bacteria Few (NEG) 06/22/17 00:55 Urine Opiates Screen Negative (NEGATIVE) 06/22/17 04:00 Urine Methadone Screen Negative (NEGATIVE) 06/22/17 04:00 Ur Barbiturates Screen Negative (NEGATIVE) 06/22/17 04:00 Ur Phencyclidine Scrn Negative (NEGATIVE) 06/22/17 04:00 Ur Amphetamines Screen Negative (NEGATIVE) 06/22/17 04:00 U Benzodiazepines Scrn Negative (NEGATIVE) 06/22/17 04:00 U Oth Cocaine Metabols Negative (NEGATIVE) 06/22/17 04:00 U Cannabinoids Screen Negative (NEGATIVE) 06/22/17 04:00 Alcohol, Quantitative 317 mg/dL (0-10) H* 06/21/17 22:43 - Hospital Course Hospital Course: As per admission documentation 47 year old male with past medical history of asthma, HTN, gastritis, alcohol abuse who presents to ED by EMS for syncopal episode occurring earlier in the day. Patient indicates that he became dizzy at work due to fasting for blood work he was to have drawn. He then went home and laid down for a nap and as he stood up he became lightheaded and had syncopal episode. Patient is unsure of down time during interview. He reports trauma to his face with abrasion of his lower left lip. Patient denies bowel or urinary incontinence, biting of his tongue, confusion after syncopal episode. He reports that this is the first episode for him in quit some time. Private discussion with family indicates patient has had pre-syncope v. syncope 4 times in the past 7 months. 12 point ros benign other than mentioned in hpi. Hospital Course Patient admitted for syncope and alcohol intox. Neuro consulted, Dr. Griffith. Patient at a laceration to lower left lip as a result of syncopal episode, which was repaired. - Head CT: no evidence of acute intracranial abn, chronic sinusitus - Maxillofacial CT: Chronic sinusitis, no acute fracture, or dislocation, advaced dental caries and periodontal disease - Head/Neck CTA: no acute findings, 0-19% stenosis b/l Patient's alcohol was 317 upon admission and he was placed on CIWA protocol and Librium for withdrawal symptoms. Patient was seen visibly shaking in the afternoon on date of admission, ativan was added for withdrawal symptoms. Carotid US - unremarkable, orthostatic vital signs - negative. Patient was hypokalemic throughout stay, which was repleted both days of admission. This is believed to be due to poor appetite. ECHO showed EV ~50% with mild/mod LVH, normal wall motion and mild MR. Patient was walked on date of discharge, he was stable with no signs of withdrawal. He was requesting to go home. SW discussed AA and rehab options. Patient understands that all of his symptoms are due to his alcohol drinking. He states that he has a problem and will follow up with AA. Patient was discharged with the following instructions. Discharge instructions 1. Follow-up with [facility] [place] [facility] on Sunday; with regards to sutures also in lip. Please call [phone] for appointment. 2. Alcohol abuse. Monitor blood pressure. Start medication if needed. 3. Follow-up with AA meetings /and AA rehabilitation. 4. Follow Up with dentist. 5. If you experience any new or worsening symptoms, please go to the nearest emergency room. Avoid drinking alcohol beverages and do not smoke! Please do not operate any heavy machinery with regards to low PLT count; bleeding could occur. Diet: Heart healthy diet Patient refuses the flu vaccine always and continues to refuse the pneumococcal vaccines. This is just a brief summary of the patient's hospital course. For full detail, please see EMR Physical Exam Appears: Non-toxic, No Acute Distress Head Exam: absent: ATRAUMATIC (left lower lip with laceration repaired by suture , intact, surrounded by area of ecchymosis) Eye Exam: EOMI, Normal appearance ENT Exam: Mucous Membranes Moist Neck Exam: absent: Lymphadenopathy, Tenderness Respiratory Exam: Clear to Ausculation Bilateral, Wheezes (throughout b/l; re- assessed after breathing treatment resulted in resolution of symptom), NORMAL BREATHING PATTERN. absent: Accessory Muscle Use, Rales, Rhonchi, Respiratory Distress Cardiovascular Exam: REGULAR RHYTHM, +S1 GI & Abdominal Exam: Soft, Normal Bowel Sounds. absent: Distended, Firm, Guarding, Rigid, Tenderness Extremities Exam: absent: Calf Tenderness, Tenderness Back Exam: absent: CVA tenderness (L), CVA tenderness (R) Neurological Exam: Alert, Awake, CN II-XII Intact, Oriented x3 Additional comments: No tremors throughout, especially in upper extremities b /l noted today. Psychiatric exam: Normal Affect, Normal Mood Skin Exam: Dry, Warm Discharge Exam - Head Exam Head Exam: absent: ATRAUMATIC (left lower lip with laceration repaired by suture , intact, surrounded by area of ecchymosis) Discharge Plan - Discharge Medications Prescriptions: Multivitamin [Animal Chews] 1 each PO DAILY #20 tab.chew RX: Folic Acid 1 mg PO DAILY #20 tab chlordiazePOXIDE [Chlordiazepoxide HCl] 10 mg PO TID #6 cap Famotidine [Pepcid] 40 mg PO DAILY #10 tablet Thiamine [Vitamin B-1] 100 mg PO DAILY #20 tab - Follow Up Plan Condition: FAIR Disposition: HOME/ ROUTINE Instructions: Syncope (Fainting), Alcohol Use - When Is Drinking a Problem?, Heart Healthy Diet, Quitting Smoking for Older Adults, Preventing Falls, Quitting Smoking, Alcohol Withdrawal (DC), Stitches, Syncope (DC), Syncope (GEN) Additional Instructions: 1. Follow-up with [facility] [place] clinic on Sunday; with regards to sutures also in lip. Please call [phone] for appointment. 2. Alcohol abuse. Monitor blood pressure. Start medication if needed. 3. Follow-up with AA meetings /and AA rehabilitation. 4. Follow Up with dentist. 5. If you experience any new or worsening symptoms, please go to the nearest emergency room. Avoid drinking alcohol beverages and do not smoke! Please do not operate any heavy machinery with regards to low PLT count; bleeding could occur. Diet: Heart healthy diet Patient refuses the flu vaccine always and continues to refuse the pneumococcal vaccines. Referrals: [facility] at [facility] [place] [Outside] PCP,NO [Primary Care Provider] - <Joanne Narvaez - Last Filed: 06/24/17 13:36> Provider - Provider Date of Admission: 06/22/17 14:56 Attending physician: John Woody MD Primary care physician: NO PRIMARY CARE PROVIDER Hospital Course - Lab Results Lab Results: Most Recent Lab Values WBC 4.6 10^3/ul (4.5-11.0) 06/23/17 07:30 RBC 4.70 10^6/uL (3.5-6.1) 06/23/17 07:30 Hgb 8.3 g/dL (14.0-18.0) L 06/23/17 07:30 Hct 30.3 % (42.0-52.0) L 06/23/17 07:30 MCV 64.5 fl (80.0-105.0) L 06/23/17 07:30 MCH 17.7 pg (25.0-35.0) L 06/23/17 07:30 MCHC 27.4 g/dl (31.0-37.0) L 06/23/17 07:30 RDW 19.8 % (11.5-14.5) H 06/23/17 07:30 Plt Count 81 10^3/uL (120.0-450.0) L 06/23/17 07:30 Gran % 62.5 % (50.0-68.0) 06/23/17 07:30 Lymph % (Auto) 18.1 % (22.0-35.0) L 06/23/17 07:30 [place] % (Auto) 14.0 % (1.0-6.0) H 06/23/17 07:30 Eos % (Auto) 4.3 % (1.5-5.0) 06/23/17 07:30 Baso % (Auto) 1.1 % (0.0-3.0) 06/23/17 07:30 Gran # 2.89 (1.4-6.5) 06/23/17 07:30 Lymph # (Auto) 0.8 (1.2-3.4) L 06/23/17 07:30 [place] # (Auto) 0.7 (0.1-0.6) H 06/23/17 07:30 Eos # (Auto) 0.2 (0.0-0.7) 06/23/17 07:30 Baso # (Auto) 0.05 K/mm3 (0.0-2.0) 06/23/17 07:30 PT 14.2 SECONDS (9.4-12.5) H 06/21/17 22:43 INR 1.24 (0.93-1.08) H 06/21/17 22:43 APTT 37.9 Seconds (25.1-36.5) H 06/21/17 22:43 Sodium 142 mmol/L (132-148) 06/23/17 07:30 Potassium 3.2 mmol/L (3.6-5.0) L 06/23/17 07:30 Chloride 108 mmol/L (98-107) H 06/23/17 07:30 Carbon Dioxide 25 mmol/L (21-33) 06/23/17 07:30 Anion Gap 12 (10-20) 06/23/17 07:30 BUN 3 mg/dL (7-21) L 06/23/17 07:30 Creatinine 0.6 mg/dl (0.8-1.5) L 06/23/17 07:30 Est GFR ( Amer) > 60 06/23/17 07:30 Est GFR (Non-Af Amer) > 60 06/23/17 07:30 POC Glucose (mg/dL) 97 mg/dL (65-110) 06/21/17 22:00 Random Glucose 121 mg/dL (70-110) H 06/23/17 07:30 Calcium 8.4 mg/dL (8.4-10.5) 06/23/17 07:30 Phosphorus 3.1 mg/dL (2.5-4.5) 06/22/17 12:00 Magnesium 1.7 mg/dL (1.7-2.2) 06/22/17 12:00 Total Bilirubin 1.9 mg/dL (0.2-1.3) H 06/23/17 07:30 AST 66 U/L (17-59) H 06/23/17 07:30 ALT 33 U/L (7-56) 06/23/17 07:30 Alkaline Phosphatase 79 U/L (38-126) 06/23/17 07:30 Lactate Dehydrogenase 737 U/L (333-699) H 06/21/17 22:43 Total Creatine Kinase 85 U/L (35-230) 06/21/17 22:43 Troponin I 0.02 ng/mL D 06/21/17 22:43 Total Protein 6.9 g/dL (5.8-8.3) 06/23/17 07:30 Albumin 3.3 g/dL (3.0-4.8) 06/23/17 07:30 Globulin 3.6 gm/dL 06/23/17 07:30 Albumin/Globulin Ratio 0.9 (1.1-1.8) L 06/23/17 07:30 Vitamin B12 289 pg/mL (239-931) 06/22/17 12:00 Folate 5.7 ng/mL 06/22/17 12:00 Urine Color Yellow (YELLOW) 06/22/17 00:55 Urine Appearance Sl cloudy (CLEAR) 06/22/17 00:55 Urine pH 6.5 (4.7-8.0) 06/22/17 00:55 Ur Specific [place] 1.020 (1.005-1.035) 06/22/17 00:55 Urine Protein 100 mg/dL (<30 mg/dL) H 06/22/17 00:55 Urine Glucose (UA) Negative mg/dL (NEGATIVE) 06/22/17 00:55 Urine Ketones 15 mg/dL (NEGATIVE) H 06/22/17 00:55 Urine Blood Negative (NEGATIVE) 06/22/17 00:55 Urine Nitrate Negative (NEGATIVE) 06/22/17 00:55 Urine Bilirubin Small (NEGATIVE) H 06/22/17 00:55 Urine Urobilinogen 4.0 E.U./dL (<1 E.U./dL) H 06/22/17 00:55 Ur Leukocyte Esterase Negative Dell/uL (NEGATIVE) 06/22/17 00:55 Urine RBC 0 - 2 /hpf (0-2) 06/22/17 00:55 Urine WBC 0 - 2 /hpf (0-6) 06/22/17 00:55 Ur Epithelial Cells 1 - 3 /hpf (0-5) 06/22/17 00:55 Urine Bacteria Few (NEG) 06/22/17 00:55 Urine Opiates Screen Negative (NEGATIVE) 06/22/17 04:00 Urine Methadone Screen Negative (NEGATIVE) 06/22/17 04:00 Ur Barbiturates Screen Negative (NEGATIVE) 06/22/17 04:00 Ur Phencyclidine Scrn Negative (NEGATIVE) 06/22/17 04:00 Ur Amphetamines Screen Negative (NEGATIVE) 06/22/17 04:00 U Benzodiazepines Scrn Negative (NEGATIVE) 06/22/17 04:00 U Oth Cocaine Metabols Negative (NEGATIVE) 06/22/17 04:00 U Cannabinoids Screen Negative (NEGATIVE) 06/22/17 04:00 Alcohol, Quantitative 317 mg/dL (0-10) H* 06/21/17 22:43 Attending/Attestation - Attestation I have personally seen and examined this patient.: Yes I have fully participated in the care of the patient.: Yes I have reviewed all pertinent clinical information, including history, physical exam and plan: Yes Notes (Text): 06/24/17 13:35 Attending note; Patient seen and examined with resident. Patient is a 47-year-old male with a history of alcohol abuse is admitted with acute alcohol abuse and fall. CT head is negative. CTA is negative. Neurology evaluation appreciated. Mild alcohol withdrawal; treated with IV Ativan on banana bag. Elevated LFT; mostly secondary to alcohol abuse. Improving slowly. Taper Ativan. Thrombocytopenia; secondary to alcohol-induced bone marrow suppression. History of anemia; patient had workup with egd/colonoscopy 2 years ago. Needs outpatient GI follow up. Complete alcohol cessation is strongly advised. 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 Patient is ambulating without any difficulty. We'll be discharged home today. Patient is strongly advised to attend AA meetings/AA rehabilitation. Case discussed with patient's sister in detail. upon discharge the patient will follow-up with [facility] clinic.
== END 2017-06-23 17:05 | disposition home or self-care (01) | DRG 750 ==
LOC: ED 21:01 → ERH 06-22 03:06 → 2RSO 06-22 04:21 → OBSVTOIN 06-22 14:56
PROVIDERS: ADMIT Internal Medicine; ATTEND Internal Medicine
PROC: 3E0234Z Introduction of Serum, Toxoid and Vaccine into Muscle, Percutaneous Approach (ICD-10-PCS; principal; 2017-06-22)
DX: F10.239 Alcohol dependence with withdrawal, unspecified (principal); D69.59 Other secondary thrombocytopenia; E87.6 Hypokalemia; I10 Essential (primary) hypertension; J45.909 Unspecified asthma, uncomplicated; D64.9 Anemia, unspecified; J32.9 Chronic sinusitis, unspecified; K02.9 Dental caries, unspecified; K05.6 Periodontal disease, unspecified; L30.9 Dermatitis, unspecified; S00.81XA Abrasion of other part of head, initial encounter; S00.83XA Contusion of other part of head, initial encounter; S01.511A Laceration without foreign body of lip, initial encounter; Z80.0 Family history of malignant neoplasm of digestive organs; Z82.41 Family history of sudden cardiac death; Z82.5 Family history of asthma and other chronic lower respiratory diseases; F17.210 Nicotine dependence, cigarettes, uncomplicated; W19.XXXA Unspecified fall, initial encounter; R40.2412 Glasgow coma scale score 13-15, at arrival to emergency department; Z23 Encounter for immunization